=== PATIENT | female | born 1985 | race Caucasian/White ===

== ENCOUNTER 2021-05-01 19:12 | Emergency (ER) | payer BC, SELFPAY ==
[2021-05-01 19:24] VITALS: BP 114/72; PULSE 81; RESP 16; TEMP 36.4; O2SAT 100
--- NOTE | 2021-05-01 19:32 | ED.GENADULT ---
HPI - General Adult General Chief complaint: Skin/Abscess/Foreign Body Stated complaint: infection on right leg Time Seen by Provider: 05/01/21 19:32 Source: patient and RN notes reviewed Mode of arrival: ambulatory Limitations: no limitations History of Present Illness HPI narrative: 35-year-old female presents with complaints of redness, tenderness, and swelling to the right inner upper thigh for 1 day. ?Deborah reports increasing in size and redness today, she has attempted to drain the area without success. ?Applied peroxide without relief. ?Tender to touch. ?Small amount of bloody drainage with squeezing area. ?History of skin abscess. ?Denies history of Staph. ?No fever or chills. ?No abdominal pain, nausea, and vomiting. ?Tolerating po intake well. ?LMP 2 weeks ago. ?Remains active. ?The patient reports she has not been diagnosed with COVID-19. ?The patient reports she received 2 Moderna COVID-19 vaccines. ?The patient reports she is not waiting for the results of a COVID-19 lab test. ?The patient reports she does not have weakness, fatigue, or myalgia. ?The patient reports she does not have a new or worsening cough or shortness of breath. ?The patient reports she does not have any rhinorrhea, congestion, loss of taste, sore throat, and diarrhea. ?Denies recent traveling. ?Denies concerns for COVID-19 or exposures. ?At this time, the patient is not suspected of having COVID-19. Some parts of this dictation were generated by voice recognition software and may contain typographical and/or grammatical inaccuracies. Related Data Home Medications Medication Instructions Recorded Confirmed bupropion HCl 150 mg PO BID 05/01/21 05/01/21 Allergies Allergy/AdvReac Type Severity Reaction Status Date / Time No Known Allergies Allergy Verified 05/01/21 19:35 Review of Systems Review of Systems: CONSTITUTIONAL: Denies fever, chills, sweats. EYES: Denies visual changes, redness, discharge. ENT: Denies rhinorrhea, congestion, sore throat, otalgia. CARDIOVASCULAR: Denies chest pain, palpitations, edema. RESPIRATORY: Denies dyspnea, wheezing, cough. GASTROINTESTINAL: Denies abdominal pain, nausea, vomiting, diarrhea. SKIN: Denies rash or itching. Complaints of redness, tenderness, and swelling to the right inner upper thigh with intermittent drainage. MUSCULOSKELETAL: Denies acute back pain, joint pain, or myalgia. NEUROLOGIC: Denies numbness or focal weakness. PSYCHIATRIC: Denies anxiety or depression. All systems reviewed & are unremarkable except as noted in HPI and below. [facility] Past Medical History Medical History (Updated 05/02/21 @ 00:01 by Kaylin Licea) Boil Obesity Smoker Staph aureus infection Umbilical hernia Surgical History Surgical History (Updated 05/01/21 @ 20:05 by BRAYAN Smith) History of hernia surgery X4 with mesh Family History Family History (Updated 05/01/21 @ 20:06 by BRAYAN Smith) Father Hypertension Diabetes mellitus Mother Unknown family medical history Social History Social History (Updated 05/01/21 @ 20:07 by BRAYAN Smith) Smoking packs per day: 0.5 Smoking cigarettes per day: 10.0 Years smoked: 15 Smoking pack-years: 7.50 Smoking status: Current every day smoker Tobacco type: cigarettes Second hand tobacco smoke exposure: Yes Alcohol intake: never Substance use: current Substance use type: marijuana Living arrangements: with family Occupation/Education: occupation Gender identity (if verbalized by the patient): Female Sexual Orientation (if Verbalized by the Patient): Straight or Heterosexual Comments At time of signature, I have reviewed and agree with nursing past medical, surgical, social, and family history. Please see the nursing chart for further information. There is relevant patient's history pertinent to the presenting complaint, no relevant family history pertinent to the presenting complaint.
== END 2021-05-01 20:28 | disposition home or self-care (01) ==
PROVIDERS: Emergency Provider Nurse Practitioner Family
DX: L02.415 Cutaneous abscess of right lower limb (principal); F17.210 Nicotine dependence, cigarettes, uncomplicated; E66.9 Obesity, unspecified; Z68.25 Body mass index [BMI] 25.0-25.9, adult; Z86.19 Personal history of other infectious and parasitic diseases
CPT/HCPCS: 99213; G0463

== ENCOUNTER 2023-12-25 18:07 | Emergency (ER) | payer OTHER, SELFPAY ==
--- NOTE | ~2023-12-25 | CT_ITS ---
EXAMINATION: CT abdomen pelvis w con DATE: 12/25/2023 19:39 INDICATION: RLQ pain/r/o appy TECHNIQUE: Computed tomography (CT) of the abdomen and pelvis was performed with 100 mL Omnipaque-350 intravenous contrast. Automated exposure control and iterative reconstruction technique were employe d. The dose-length product was 762.79 mGy-cm. COMPARISON: None. FINDINGS: Lower thorax: Unremarkable Liver: Normal. Biliary/Gallbladder: Gallbladder is partially contracted. No bile duct dilation. Pancreas: No mass or duct dilation. Spleen: Normal. Adrenals:No mass. Kidneys: No suspicious mass, obstructing stone, or hydronephrosis. GI tract: Mild distal esophageal and gastric wall edema. No small or large bowel dilation. Normal ajit endix. Minimal diverticulosis without diverticulitis. Mesentery/Peritoneum: No ascites, mass, or free air. Retroperitoneum: No mass. Pelvis: Pelvic organs are within normal limits. Soft Tissues: Anterior hernia mesh with soft tissue anchors. Small fat-containing uncomplicated bilat eral inguinal hernias. Bones: No acute osseous finding. IMPRESSION: Mild esophagitis/gastritis. No other acute abdominopelvic process detected. Specifically, there is no CT evidence of acute append icitis. Reviewed, dictated and finalized at location K. IMPRESSION: Mild esophagitis/gastritis. No other acute abdominopelvic process detected. Specifically, there is no CT ev idence of acute appendicitis.
--- NOTE | ~2023-12-25 | US_ITS ---
EXAMINATION: US transvaginal DATE: 12/25/2023 21:13 INDICATION: r/o ovarian torsion; RLQ/pelvic pain; neg CT TECHNIQUE: Multiple transabdominal and endovaginal sonographic images of the pelvis were obtained. COMPARISON: CT abdomen pelvis, same date. FINDINGS: Uterus: 8.2 x 4.4 x 5.1 cm. Endometrial complex measures 13 mm. Right Ovary: 2.1 x 2.7 x 2.1 cm. Vascular flow is present. Corpus luteal cyst. Left Ovary: 2.3 x 1.7 x 1.3 cm. Vascular flow is present. There is physiologic range free fluid in the pelvis. IMPRESSION: Normal pelvic sonogram findings. Reviewed, dictated and finalized at location K.
[2023-12-25 18:30] VITALS: BP 144/86; PULSE 80; RESP 16; TEMP 36.8; O2SAT 100
--- NOTE | 2023-12-25 18:40 | ED.ABDPAIN ---
HPI - Abdominal Pain General Chief Complaint: Abdominal Pain <Kalyan Lau APRN - Last Filed: 12/25/23 18:43> Stated Complaint: RLQ pain <Kalyan Lau APRN - Last Filed: 12/25/23 18:43> Time Seen by Provider: 12/25/23 18:41 <Kalyan Lau APRN - Last Filed: 12/25/23 18:43> Focused HPI: General: Well-developed, well nourished, in no apparent distress. Head: Normocephalic, atraumatic. Cardio: Regular rate and rhythm, s1 and s2 normal, no murmur appreciated. Resp: Clear to auscultation bilaterally, no rhonchi, rales, wheezing or rubs. Abdomen: Soft, pliable, bowel sounds present in all quadrants, tender to palpation over the right lower quadrant, rebound tenderness to the right lower quadrant, no organomegly, no CVAT tenderness. Patient screened in triage and initial orders placed. Additional care and disposition to be based upon diagnostic testing and treatment. <Kalyan Lau APRN - Last Filed: 12/25/23 18:43> Source: patient <Kalyan Lau APRN - Last Filed: 12/25/23 18:43> Mode of arrival: ambulatory <Kalyan Lau APRN - Last Filed: 12/25/23 18:43> Limitations: no limitations <Kalyan Lau APRN - Last Filed: 12/25/23 18:43> History of Present Illness HPI narrative: patient presents with right lower quadrant abdominal pain that started yesterday at work while moving 5-10 lb. She denies any nausea, vomiting, or diarrhea. No fevers. Her last bowel movement was today. Her last oral intake was lunch and her appetite is otherwise okay. She denies any vaginal discharge or bleeding. Last menstrual period 12/07/2023. History of umbilical hernia surgery repair x4. <Irene Pierre MD - Last Filed: 12/25/23 23:12> Related Data Home Medications: Home Medications Medication Instructions Recorded Confirmed bupropion HCl 150 mg tablet,12 hr 150 mg PO BID 05/01/21 05/01/21 sustained-release <Kalyan Lau APRN - Last Filed: 12/25/23 18:43> Allergies/Adverse Reactions: Allergies Allergy/AdvReac Type Severity Reaction Status Date / Time No Known Allergies Allergy Verified 05/01/21 19:35 <Kalyan Lau APRN - Last Filed: 12/25/23 18:43> [facility] Past Medical History Medical History: Medical History Boil Hx of ovarian cyst when in teens/20s Obesity Smoker Staph aureus infection Umbilical hernia <Kalyan Lau APRN - Last Filed: 12/25/23 18:43> Surgical History Surgical History: Surgical History History of hernia surgery X4 with mesh History of tubal ligation <Kalyan Lau APRN - Last Filed: 12/25/23 18:43> Family History Family History: Family History (Updated 05/01/21 @ 20:06 by BRAYAN Smith) Father Hypertension Diabetes mellitus Mother Unknown family medical history <Kalyan Lau APRN Last Filed: 12/25/23 18:43> Social History Social History: Social History (Updated 05/01/21 @ 20:07 by BRAYAN Smith) Smoking packs per day: 0.5 Smoking cigarettes per day: 10.0 Years smoked: 15 Smoking pack-years: 7.50 Smoking status: Current every day smoker Tobacco type: cigarettes Second hand tobacco smoke exposure: Yes Alcohol intake: never Substance use: current Substance use type: marijuana Living arrangements: with family Occupation/Education: occupation Gender identity (if verbalized by the patient): Female Sexual Orientation (if Verbalized by the Patient): Straight or Heterosexual <Kalyan Lau APRN - Last Filed: 12/25/23 18:43> Comments At the time of my signature, I reviewed and agree with the nursing past medical, surgical, social, and family history. There is no relevant family history pertinent to the patient complaint. <Kalyan Lau APRN - F
[2023-12-25 18:57] LABS: Basophils Percent Auto 0.3 % (0.2-1.2); Eosinophils Absolute Auto 0.4 K/mm3 (0-0.3); Eosinophils Percent Auto 7.2 % (0-4.4); Hematocrit 39.9 % (37.0-47.0); Hemoglobin 12.4 g/dL (12.0-15.0); Immature Granulocyte Absolute 0.02 K/mm3 (0.00-0.031); Immature Granulocyte Percent A 0.3 % (0-0.5); Lymphocytes Absolute Auto 2.96 K/mm3 (0.9-3.2); Mean Corpuscular HGB Conc 31.1 g/dl (32-36); Mean Corpuscular Volume 93.2 fl (80-100); Mean Platelet Volume 9.4 fl (7.4-10.4); Monocytes Absolute Auto 0.5 K/mm3 (0.1-0.6); Monocytes Percent Auto 7.9 % (2.6-8.5); Neutrophils Absolute Auto 1.9 K/mm3 (1.3-6.7); Neutrophils Percent Auto 33.3 % (45.5-73.1); Platelet Count Result 272 k/mm3 (150-375); Red Blood Count 4.28 M/mm3 (4.2-5.4); Red Cell Distribution Width 14.4 % (11.5-14.5); White Blood Count 5.8 K/mm3 (4.5-10.0)
[2023-12-25 19:26] LABS: Appearance Urine Clear (Clear); Bilirubin Urine Negative (Negative); Blood Urine Negative (Negative); Color Urine Yellow (Yellow); Glucose Urine UA Negative (Negative); Ketones Urine Negative (Negative); Leukocyte Esterase Ur Negative LEU/UL (Negative); Nitrate Urine Negative (Negative); Protein Urine Negative (Negative); Specific Grav Ur 1.008 (1.001-1.035); Urobilinogen Urine 0.2 mg/dL (<2.0); pH Urine 5.5 (5.0-9.0)
[2023-12-25 19:41] LABS: Alanine Aminotransferase 22 U/L (6-35); Albumin Level 3.9 g/dL (3.5-5.1); Alkaline Phosphatase 83 U/L (38-126); Anion Gap 6 mmol/L (4-12); Aspartate Amino Transferase 34 U/L (14-36); Bilirubin,Total 0.2 mg/dL (0.2-1.3); Blood Urea Nitrogen 12 mg/dL (7-17); Calcium 8.7 mg/dL (8.4-10.2); Carbon Dioxide 25 mmol/L (22-30); Chloride 105 mmol/L (98-107); Estimated CRCL calculation 108 ml/min; Estimated Glomerular Filt Rate > 60; Glucose 104 mg/dL (65-110); Lipase 77 U/L (23-300); Potassium 3.7 mmol/L (3.4-5.0); Sodium 136 mmol/L (137-145)
[2023-12-25 19:47] LABS: Add Urine Microscopic? NO
[2023-12-25 20:07] VITALS: O2SAT 100
[2023-12-25 20:08] VITALS: BP 133/88; PULSE 72; RESP 18; O2SAT 100
[2023-12-25 20:15] VITALS: O2SAT 100
[2023-12-25] MEDS: MORPHINE SULFATE (*CRX) 4 MG/ML INJ IV PUSH (20:29)
[2023-12-25] MEDS: ACETAMINOPHEN 500 MG TABLET 1000 MG PO (20:52)
[2023-12-25] MEDS: DICYCLOMINE HCL 10 MG CAPSULE PO (22:04)
[2023-12-25] MEDS: KETOROLAC 15 MG/ML VIAL (*BKC) IV PUSH (22:04)
[2023-12-25] MEDS: MAGNESIUM CITRATE 300 ML BTL 150 ML PO (22:09)
[2023-12-25 22:13] VITALS: BP 131/66; PULSE 64; RESP 18; TEMP 36.8; O2SAT 100
== END 2023-12-25 22:18 | disposition home or self-care (01) ==
PROVIDERS: Nurse Practitioner Family; Emergency Provider Student in an Organized Health Care Education/Training Program; PCP Nurse Practitioner
DX: K59.00 Constipation, unspecified (principal); E66.9 Obesity, unspecified; Z68.32 Body mass index [BMI] 32.0-32.9, adult; Z87.891 Personal history of nicotine dependence; K20.90 Esophagitis, unspecified without bleeding; K29.70 Gastritis, unspecified, without bleeding
CPT/HCPCS: 36415; 74177; 76830; 80053; 81003; 81025; 83690; 85025; 96374; 96375; 99284; A9270; J1885; J2270; Q9967